=== PATIENT | male | born 1965 | race Caucasian/White ===

== ENCOUNTER 2020-10-12 22:10 | Observation (INO) ==
[2020-10-12 23:49] LABS: Basophils # 0.1 K/mcL (0.0-0.2); Basophils % 0.5 %; Eosinophils # 0.1 K/mcL (0.0-0.6); Eosinophils % 0.7 %; Hematocrit 24.7 % (37.5-50.1); Immature Granulocytes % 1.1 % (0-4); Lymphocytes # 0.4 K/mcL (0.6-4.6); Lymphocytes % 3.5 %; Mean Corpuscular HGB Conc 32.4 g/dL (31.6-35.5); Mean Corpuscular Hemoglobin 26.9 pg (28.0-33.3); Mean Corpuscular Volume 83.2 fL (83.0-100.0); Mean Platelet Volume 9.6 fL (9.4-12.4); Monocytes # 0.7 K/mcL (0.0-1.3); Monocytes % 5.4 %; Neutrophils # 10.9 K/mcL (1.6-8.9); Platelet Count 432 K/mcL (140-400); Red Blood Count 2.97 M/mcL (4.19-5.50); Red Cell Distribution Width 19.9 % (11.5-14.5); Segmented Neutrophils % 88.8 %; White Blood Count 12.3 K/mcL (4.3-11.1)
[2020-10-12 23:51] LABS: Prothrombin Time 33.3 Seconds (9.4-12.1)
[2020-10-12 23:54] LABS: Activated Partial Thrombo Time 49.5 Seconds (26.0-36.0)
[2020-10-13 00:22] LABS: Potassium 6.3 mEq/L (3.5-5.1)
[2020-10-13 00:23] LABS: Alanine Aminotransferase 91 Units/L (7-52); Alkaline Phosphatase > 1500 Units/L (34-104); Aspartate Amino Transferase 145 Units/L (13-39); BUN/Creatinine Ratio 15 (6-26); Bilirubin,Total 21.7 mg/dL (0.3-1.0); Blood Urea Nitrogen 63 mg/dL (6-20); Calcium 8.1 mg/dL (8.6-10.3); Carbon Dioxide 18 mEq/L (23-29); Chloride 84 mEq/L (98-107); Glucose 85 mg/dL (70-105); Magnesium 2.5 mg/dL (1.6-2.6); Osmolality,Calculated 265 (280-300); eGFR For African Americans 18 (> 60); eGFR For Non-African Americans 15 (> 60)
[2020-10-13 00:24] LABS: Albumin 2.7 g/dL (3.5-5.7); Albumin/Globulin Ratio 0.8 (1.1-2.2); Globulin 3.4 g/dL (2.4-3.5); Sodium 119 mEq/L (136-145); Total Protein 6.1 g/dL (6.4-8.9)
[2020-10-13 00:33] LABS: Bilirubin,Urine Large (Negative); Blood,Urine Large (Negative); Clarity,Urine Clear (Clear); Glucose,Urine (UA) Normal (Normal); Ketones,Urine Negative (Negative); Leukocyte Esterase,Urine Negative (Negative); Nitrite,Urine Negative (Negative); PH,Urine 5.5 pH Units (5.0-8.0); Protein,Urine 100 mg/dL (Neg-Trace); Specific Gravity,Urine 1.025 (1.010-1.025); Urobilinogen,Urine Normal (Normal)
[2020-10-13 00:34] LABS: Color,Urine Dark Yellow (Yellow)
[2020-10-13 00:35] LABS: Bacteria,Urine Few per hpf (None-Few); RBC,Urine 15-30 per hpf (0-3); Squamous Epithelial Cell,Urine Few per hpf (None-Few); Transitional Epi Cells,Urine Few per hpf (None-Few); WBC,Urine 0-3 per hpf (0-3)
[2020-10-13] MEDS ORDERED: Ondansetron ODT 4 MG TAB.RAPDIS SL PRN (03:03)
[2020-10-13] MEDS ORDERED: Saline Nasal Spray 44 ML BOTTLE NS PRN (03:03)
[2020-10-13] MEDS ORDERED: *HR* LORazepam 2 MG/ML VIAL IVP PRN (03:03)
[2020-10-13] MEDS ORDERED: Naloxone 0.4 MG/ML INJ IVP PRN (03:03)
[2020-10-13] MEDS: Morphine Sulfate 2 MG/ML SYRINGE IVP PRN ×7 (04:06→19:03)
[2020-10-13] MEDS ORDERED: Ipratropium/Albuterol Neb 3 ML IH PRN (07:42)
[2020-10-13] MEDS: Ipratropium/Albuterol Neb 3 ML IH SCH ×3 (08:07→17:03)
[2020-10-13 19:20] VITALS: BP 99/64
== END 2020-10-13 19:31 | disposition hospice, home (50) ==
LOC: EMEROOGRE 22:10 → INPGRE 22:10
PROVIDERS: ADMIT Family Medicine; ATTEND Family Medicine